=== PATIENT | male | born 1940 | race Hispanic/Latino ===

== ENCOUNTER 2017-04-21 09:17 | Outpatient (CLI) | payer MEDICARE ==
--- NOTE | 2017-04-22 07:32 | XRay Report ---
Bilateral knee: History: Knee pain. Findings: Bilateral narrowing of the medial and patellofemoral compartment knee joint. Sclerotic articular surfaces with peripheral osteophytes suggestive of degenerative changes. No fracture. No soft tissue calcification or joint effusion. 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
== END 2017-04-21 09:18 | disposition home or self-care (01) ==
LOC: SPVIMAG 09:17 → XRAY 09:17
PROVIDERS: ATTEND Orthopaedic Surgery
DX: M17.0 Bilateral primary osteoarthritis of knee (principal)